=== PATIENT | female | born 1995 | race Caucasian/White ===

== ENCOUNTER 2016-03-27 11:24 | Inpatient (IN) | payer BC ==
[~2016-03-27 11:24] MED LIST: ACETAMINOPHEN 500 MG TAB PO ONE; BUPIVACAINE/EPI 0.25% 30 ML SDV ONE; CEFAZOLIN 2 GM/DEXTR 100 ML IV ONE; CITRATE DEXTROSE SOLN 500 ML BAG ONE; PREGABALIN 75 MG CAP PO ONE; SKIN ADHESIVE (DERMABOND) 1 EACH TP ONE; TRANEXAMIC ACID 1,000 MG in NS 100 ML IV ONE
[2016-03-27] MEDS ORDERED: fentaNYL 100 MCG/2 ML INJ ONE ×3 (11:43→19:27)
[2016-03-27] MEDS ORDERED: DEXAMETHASONE 4 MG/ML VIAL ONE (11:43)
[2016-03-27] MEDS ORDERED: HYDROmorphONE/DILAUDID 2 MG/ML SYR ONE (11:43)
[2016-03-27] MEDS ORDERED: ONDANSETRON 4 MG/2 ML VIAL ONE (11:43)
[2016-03-27] MEDS ORDERED: ROCURONIUM 50 MG/5 ML VIAL ONE (11:43)
[2016-03-27] MEDS ORDERED: LIDOCAINE 2% 100 MG/5 ML SYR IVP ONE (11:43)
[2016-03-27] MEDS ORDERED: SUGAMMADEX SODIUM 200 MG/2 ML VIAL IVP ONE (11:43)
[2016-03-27] MEDS ORDERED: ACETAMINOPHEN 500 MG TAB ONE (11:44)
[2016-03-27] MEDS ORDERED: PROPOFOL 200 MG/20 ML VIAL ONE ×2 (11:44→16:07)
[2016-03-27] MEDS ORDERED: PREGABALIN 75 MG CAP ONE (11:45)
[2016-03-27] MEDS ORDERED: SCOPOLAMINE HYDROBROMIDE 1.5 MG PATCH TD ONE (12:30)
[2016-03-27] MEDS ORDERED: LR 1,000 ML IV ONE (12:42)
[2016-03-27] MEDS ORDERED: LIDOCAINE 2% 5 ML SDV ONE ×2 (13:28)
[2016-03-27] MEDS ORDERED: MIDAZOLAM 2 MG/2 ML VIAL ONE (13:31)
[2016-03-27] MEDS ORDERED: PHENYLEPHRINE HCL 100 MCG/ML SYR ONE (14:01)
[2016-03-27] MEDS ORDERED: NARCOTIC DRIP BAG-TOTAL ALL TYPES EP PRN (14:44)
[2016-03-27] MEDS ORDERED: diphenhydrAMINE 25 MG CAP PO PRN (14:44)
[2016-03-27] MEDS ORDERED: ONDANSETRON 4 MG/2 ML VIAL IVP PRN ×2 (14:44→18:01)
[2016-03-27] MEDS ORDERED: NALOXONE HCL 0.4 MG/ML INJ IVP PRN (14:44)
[2016-03-27] MEDS ORDERED: CITRATE DEXTROSE SOLN 500 ML BAG ONE (16:23)
[2016-03-27] MEDS ORDERED: ACETAMINOPHEN 325 MG TAB PO PRN (18:01)
[2016-03-27] MEDS ORDERED: POLYETHYLENE GLYCOL 3350 17 GM PKT PO PRN (18:01)
[2016-03-27] MEDS ORDERED: LACTULOSE 20 GM/30 ML UDCUP PO PRN (18:01)
[2016-03-27] MEDS ORDERED: BISACODYL 10 MG SUPP PR PRN (18:01)
[2016-03-27] MEDS ORDERED: MAGNESIUM HYDROXIDE 30 ML UDCUP PO PRN (18:01)
--- NOTE | 2016-03-27 18:08 | SUROPNOTE ---
ANDRY Operative Report - Surgery Surgery was performed at [facility] 03/27/16 Diagnosis: Right 1. Hip Acetabular Dysplasia Operation: Right [place] Acetabular Osteotomy (ESTHER) Surgeon: Yao Jorge MD Aircraft Tool Maker: Quincy RANGEL Anesthetic: General + epidural Procedure: General anesthetic. Antibiotics given. Cell saver in use. Fluoroscopy. Phase 1: Position lateral, diagonal skin incision between ischial tuberosity and greater trochanter as for posterior hip approach. Blunt split of glut max fibers. Identification of fat pad overlying sciatic nerve. Exposure of sciatic nerve under fat pad, gently retracting it away-medially to ischial tuberosity. Exposure of subcotoloid fossa proximal to short rotators. Using osteotomes and under fluoroscopy, osteotomy of subcotoloid fossa to sciatic notch proximal to ischial spine. Closure of lateral cut. Patient is turned supine. Phase 2: Skin incision just distal to ASIS. Using diathermy the iliac spine was exposed and inguinal ligament + Sartorious were retracted medially, taking the LFCN with them, protecting it. Inner ilium was dissected from iliacus muscle bluntly , with a cob and swab. Dissection continued towards lateral superior ramus pubis. Using fluoroscopy an osteotomy of lateral superior ramus, just medial to tear drop, was performed with curved fish mouth osteotome. Phase 3: Osteotomy lines of the ilium were marked with diathermy as pre planned according to XR/CT and expected correction of acatabulum. 2 Shanz screws were drilled into central acetabular fragment, corresponding with planned correction angles, in order to mobilize central acetabular fragment after osteotomy is complete. Iliac osteotomy was performed with reciprocating saw and the main acetabular fragment was moved to realign weight bearing position. After confirmation of correction using fluoroscopy in AP and false profile planes, the fragment was fixed with 2 - 5.5mm full threaded screws Inguinal ligament and Sartorious were attached back to ASIS through drill holes. Incision was closed according to soft tissue layers. Skin was closed with subdermal Monocryl. Final fluoro shots were obtained to confirm position/correction. After surgery Elmira moved both lower limbs and had no NV motor compromise. Evaluation under anesthesia: IR at 90 degrees hip flexion prior to ESTHER was 10 degrees and after ESTHER was 0-5 degrees. Bleedin cc into cell-saver, 400 of blood products were returned to patient. Post op instructions: 1. Non weight bearing crutches for 2 weeks, WBAT after post op visit 2. Epidural analgesia for 24-48 hours 3. Continuous SCD 4. Aspirin 81 mg X1 day once Epidural is discontinued 5. Avoid hip flexion past 90 and hip External rotation. 6. PT according to my recommendations at follow up visit Kind regards, Dr. Yao Jorge .
--- NOTE | 2016-03-27 19:06 | DX ---
Fluoroscopy provided for periacetabular osteotomy 1552 hours Indication: Guidance for right periacetabular osteotomy Fluoroscopy time: 50.7 seconds. Dose: 13.58 mGy Technique: 7 intraoperative spot films Findings: Sequential imaging reveals a right periacetabular osteotomy and transfixation with cannulat ed screws in the acetabular roof. Impression: Fluoroscopy provided for intraoperative guidance.
[2016-03-27] MEDS: SENNOSIDES/DOCUSATE SODIUM TAB PO SCH (20:25)
[2016-03-28] MEDS: HYDROmorph 10MCG/ML&BUP 0.1% in 100ML NS EP SCH ×2 (02:26→19:19)
[2016-03-28 05:30] LABS: HEMATOCRIT 33.7 % (38.0-47.0); HEMOGLOBIN 11.5 g/dL (12.6-16.3); MEAN CELL HEMOGLOBIN 31.8 pg (27.9-34.1); MEAN CELL HEMOGLOBIN CONCENTR. 34.1 g/dL (32.4-36.7); MEAN CELL VOLUME 93.1 fL (81.5-99.8); RED BLOOD CELL COUNT 3.62 10^6/uL (4.18-5.33); RED CELL DISTRIBUTION WIDTH 11.8 % (11.5-15.2)
[2016-03-28 05:55] LABS: ANION GAP 4 mEq/L (8-16); CALCIUM 8.7 mg/dL (8.5-10.4); CARBON DIOXIDE 24 mEq/l (22-31); CHLORIDE 106 mEq/L (97-110); CREATININE 0.7 mg/dL (0.6-1.0); GLOMERULAR FILTRATION RATE > 60; GLUCOSE 99 mg/dL (70-100); POTASSIUM 4.4 mEq/L (3.5-5.2); SODIUM 134 mEq/L (134-144)
[2016-03-28] MEDS: LEVOTHYROXINE 25 MCG TAB PO SCH (06:09)
[2016-03-28] MEDS: DC NARCS MISC SCH (10:01)
[2016-03-28] MEDS: REGARDING ANTICOAG MISC SCH (10:01)
[2016-03-28] MEDS: SENNOSIDES/DOCUSATE SODIUM TAB PO SCH ×2 (11:08→19:57)
[2016-03-28] MEDS: OXYCODONE/APAP 5/325 TAB PO PRN ×3 (11:08→23:52)
--- NOTE | 2016-03-28 13:21 | SOAPPROG ---
SOAP Progress Note Assessment/Plan: Assessment:21 yo F POD 1 s/p ESTHER with epidural for post op pain. Pain moderately controlled with PCEA and supplemental Percocet. Numbness of LLE more concerning to pt. than pain at surgical site. Plan:Reassurance. Decrease epidural rate to 3 cc/hr with 3 cc every 15 min prn pain, patient controlled. Continue Percocet. If numbness continues to be disconcerting, will d/c bupivicaine in epidural solution and continue straight hydromorphone solution likely with increased rate. 03/28/16 13:17 Subjective: complains of numbness greater in LLE than R. Having pain 4/10 at rest, up to 8/ 10 when working with PT. Concerned about numbness in LLE more so than pain at surgical site Objective: Awake, alert. Appears to have mild discomfort. Epidural site clean dry intact. Motor and sensory decreased L>R. Vital Signs Temp Pulse Resp BP Pulse Ox 36.4 C 53 L 16 83/47 L 100 03/28/16 11:16 03/28/16 11:16 03/28/16 11:16 03/28/16 11:16 03/28/16 11:16 Laboratory Results 03/28/16 04:18 03/28/16 04:18 03/27/16 03/28/16 03/29/16 05:59 05:59 05:59 Intake Total 3095 Output Total 1900 1100 Balance 1195 -1100 - Time Spent With Patient Time Spent With Patient: 15 min ICD10 Worksheet Patient Problems: Problems Problem Status Diagnosed Hip dysplasia, congenital Acute - ICD10 Problem Qualifiers (1) Hip dysplasia, congenital
--- NOTE | 2016-03-28 21:57 | SOAPPROG ---
LESLIE Progress Note Assessment/Plan: Assessment: Plan: 03/28/16 21:54 Saw Ally infante, she is doing well, pain is managed well, with some mre numbness on contra lateral side which had mostly resolved. NV intact. She got up today. No headaches or weakness for now. BP runs a bit low/normal. She feels good with no complaints. Hb 11.5 Dr Jorge 03/28/16 21:56 Objective: Vital Signs Temp Pulse Resp BP Pulse Ox 37.0 C 66 16 90/49 L 99 03/28/16 19:25 03/28/16 19:25 03/28/16 19:25 03/28/16 19:25 03/28/16 19:25 Laboratory Results 03/28/16 04:18 03/28/16 04:18 03/27/16 03/28/16 03/29/16 05:59 05:59 05:59 Intake Total 3095 1000 Output Total 1900 1700 Balance 1195 -700 ICD10 Worksheet Patient Problems: Problems Problem Status Diagnosed Hip dysplasia, congenital Acute
[2016-03-29] MEDS: LEVOTHYROXINE 25 MCG TAB PO SCH (05:46)
[2016-03-29] MEDS: OXYCODONE/APAP 5/325 TAB PO PRN (05:46)
[2016-03-29] MEDS: DC NARCS MISC SCH (09:07)
[2016-03-29] MEDS: REGARDING ANTICOAG MISC SCH (09:07)
--- NOTE | 2016-03-29 10:09 | SOAPPROG ---
SOAP Progress Note Assessment/Plan: Assessment: 2nd day post op RIGHT Periacetabular Osteotomy Plan: Wean down and off PCEA per anesthesia I am switching the percocet with Oxycodone Up with PT/OT Pelvis Xray tomorrow Likely home Sunday03/29/16 09:58 Subjective: Elmira is doing well this morning. She is having more numbness on her non- surgical side and had to be weaned down for this reason. She was discouraged from putting weight on right side yesterday due to numbness. Objective: Vital Signs Temp Pulse Resp BP Pulse Ox 36.6 C 55 L 14 86/43 L 96 03/29/16 07:37 03/29/16 07:37 03/29/16 07:37 03/29/16 07:37 03/29/16 07:37 Laboratory Results 03/28/16 04:18 03/28/16 04:18 03/28/16 03/29/16 03/30/16 05:59 05:59 05:59 Intake Total 3095 2750 Output Total 1900 3500 Balance 1195 -750 Well appearing in NAD Right Hip: dressings clean dry intact no LFCN distribution numbness NVI distally Full ROM of foot and ankle - Pending Discharge Pending Discharge Within 48 Hours: Yes Pending Discharge Date: 03/31/16 Pending Discharge Time: 11:00 ICD10 Worksheet Patient Problems: Problems Problem Status Diagnosed Hip dysplasia, congenital Acute
[2016-03-29] MEDS: HYDROmorphONE/DILAUDID 1 MG/ML SYR IVP PRN (11:59)
[2016-03-29] MEDS: NAPROXEN SODIUM 220 MG TAB PO SCH ×2 (12:06→20:17)
[2016-03-29] MEDS: SENNOSIDES/DOCUSATE SODIUM TAB PO SCH ×2 (12:06→20:17)
[2016-03-29] MEDS: oxyCODONE IR 15 MG TAB PO PRN ×3 (13:06→22:39)
--- NOTE | 2016-03-29 15:42 | SOAPPROG ---
SOAP Progress Note Assessment/Plan: Assessment:21 yo F POD 2 s/p ESTHER with epidural for post op pain. Pain controlled with PCEA and supplemental Percocet. Numbness of LLE more concerning to pt. than pain at surgical site and this numbness has now resolved. Plan: Discontinue epidural infusion. Continue opioid analgesics per ortho. Remove epidural cath tomorrow if pt tolerates IV/PO analgesic trial. 03/29/16 15:37 Subjective: Pain controlled, L leg numbness improved and less disconcerting. Objective: Awake alert. Epidural site clean dry intact. Sensation and motor decreased in L>R but improved from yesterday. Vital Signs Temp Pulse Resp BP Pulse Ox 37 C 79 16 95/60 L 99 03/29/16 13:52 03/29/16 13:52 03/29/16 13:52 03/29/16 13:52 03/29/16 13:52 Laboratory Results 03/28/16 04:18 03/28/16 04:18 03/28/16 03/29/16 03/30/16 05:59 05:59 05:59 Intake Total 3095 2750 400 Output Total 1900 3500 1000 Balance 1195 -750 -600 - Time Spent With Patient Time Spent With Patient: 15 min ICD10 Worksheet Patient Problems: Problems Problem Status Diagnosed Hip dysplasia, congenital Acute - ICD10 Problem Qualifiers (1) Hip dysplasia, congenital
[2016-03-29] MEDS: ASPIRIN EC 81 MG TAB PO SCH (18:37)
[2016-03-30] MEDS: oxyCODONE IR 15 MG TAB PO PRN ×6 (00:31→20:31)
[2016-03-30] MEDS: LEVOTHYROXINE 25 MCG TAB PO SCH (04:56)
[2016-03-30] MEDS: ASPIRIN EC 81 MG TAB PO SCH (09:29)
[2016-03-30] MEDS: SENNOSIDES/DOCUSATE SODIUM TAB PO SCH ×2 (09:30→20:30)
[2016-03-30] MEDS: NAPROXEN SODIUM 220 MG TAB PO SCH ×2 (09:30→20:30)
[2016-03-30] MEDS: REGARDING ANTICOAG MISC SCH (09:34)
[2016-03-30] MEDS: DC NARCS MISC SCH (09:34)
[2016-03-30] MEDS: HYDROmorphONE/DILAUDID 1 MG/ML SYR IVP PRN (15:23)
--- NOTE | 2016-03-30 15:55 | DX ---
Pelvis - Single View Indication: Postop day 3 for right periacetabular osteotomy. Comparison: Fluoroscopic images dated March 27, 2016. Findings: The two cannulated screws transfixing the right acetabular osteotomy fragment remain well s eated. Bones are anatomically aligned. Impression: Well-seated right periacetabular osteotomy.
[2016-03-30] MEDS: DIAZEPAM 2 MG TAB PO PRN ×2 (16:46→23:15)
--- NOTE | 2016-03-30 21:51 | SOAPPROG ---
SOAP Progress Note Assessment/Plan: Assessment: Plan: 03/28/16 21:54 Saw Ally tonangelo, she is doing well, pain is managed well, with some mre numbness on contra lateral side which had mostly resolved. NV intact. She got up today. No headaches or weakness for now. BP runs a bit low/normal. She feels good with no complaints. Hb 11.5 Dr Jorge 03/28/16 21:56 03/30/16 21:49 Saw Ally infante, POD 3. epidural is out, folly still in. pain seem to be well managed with one tough episode today during XR. NV intact. progressing well. Dr Jorge Objective: Vital Signs Temp Pulse Resp BP Pulse Ox 36.9 C 75 14 94/56 L 99 03/30/16 20:00 03/30/16 20:00 03/30/16 20:00 03/30/16 20:00 03/30/16 20:00 Laboratory Results 03/28/16 04:18 03/28/16 04:18 03/29/16 03/30/16 03/31/16 05:59 05:59 05:59 Intake Total 2750 2400 1500 Output Total 3500 2600 1600 Balance -750 -200 -100 ICD10 Worksheet Patient Problems: Problems Problem Status Diagnosed Hip dysplasia, congenital Acute
--- NOTE | 2016-03-30 23:16 | SOAPPROG ---
SOAP Progress Note Assessment/Plan: Assessment:21 yo F POD 3 s/p ESTHER with epidural for post op pain infusion off x24 hrs. Pain controlled on iv po analgesics Plan: Continue opioid analgesics per ortho. Remove epidural cath. 03/30/16 23:13 Subjective: pain controlled off epidural infusion LE numbness resolved Objective: sensation and motor intact in LE. Epidural site clean dry intact. epidural cath intact on removal. Vital Signs Temp Pulse Resp BP Pulse Ox 36.9 C 75 14 94/56 L 99 03/30/16 20:00 03/30/16 20:00 03/30/16 20:00 03/30/16 20:00 03/30/16 20:00 Laboratory Results 03/28/16 04:18 03/28/16 04:18 03/29/16 03/30/16 03/31/16 05:59 05:59 05:59 Intake Total 2750 2400 1500 Output Total 3500 2600 1600 Balance -750 -200 -100 - Time Spent With Patient Time Spent With Patient: 5 min ICD10 Worksheet Patient Problems: Problems Problem Status Diagnosed Hip dysplasia, congenital Acute - ICD10 Problem Qualifiers (1) Hip dysplasia, congenital
[2016-03-31] MEDS: oxyCODONE IR 15 MG TAB PO PRN ×5 (00:35→16:50)
[2016-03-31] MEDS: LEVOTHYROXINE 25 MCG TAB PO SCH (05:58)
[2016-03-31] MEDS: ONDANSETRON DISINTEGRATING 4 MG TAB PO PRN ×2 (09:25→12:00)
[2016-03-31] MEDS: ASPIRIN EC 81 MG TAB PO SCH (09:26)
[2016-03-31] MEDS: NAPROXEN SODIUM 220 MG TAB PO SCH (09:26)
[2016-03-31] MEDS: SENNOSIDES/DOCUSATE SODIUM TAB PO SCH (09:26)
[2016-03-31] MEDS ORDERED: SCOPOLAMINE HYDROBROMIDE 1.5 MG PATCH TD ONE (11:30)
--- NOTE | 2016-03-31 12:19 | SOAPPROG ---
SOAP Progress Note Assessment/Plan: Assessment: 4th day post op RIGHT Periacetabular Osteotomy Plan: Scopolamine patch DC Home 03/29/16 09:58 03/31/16 12:16 Subjective: Elmira is feeling some nausea this am, the scopolamine patch was taken off. Her pain is well controlled with the oral analgesics but she had a rough experience with the pelvis XR yesterday. She is ready to go home. Objective: Vital Signs Temp Pulse Resp BP Pulse Ox 36.6 C 66 16 93/62 L 98 03/31/16 09:19 03/31/16 09:19 03/31/16 09:19 03/31/16 09:19 03/31/16 09:19 Laboratory Results 03/28/16 04:18 03/28/16 04:18 03/30/16 03/31/16 04/01/16 05:59 05:59 05:59 Intake Total 2400 2000 Output Total 2600 2900 Balance -200 -900 Well appearing in NAD Right Hip Dressings clean dry intact NVI distally Full ROM of foot and ankle - Pending Discharge Pending Discharge Within 24 Hours: Yes Pending Discharge Date: 04/01/16 Pending Discharge Time: 11:00 ICD10 Worksheet Patient Problems: Problems Problem Status Diagnosed Hip dysplasia, congenital Acute
[2016-03-31 13:03] VITALS: BP 97/62; PULSE 81; RESP 18; TEMP 98.5; O2SAT 94
[2016-03-31] MEDS: DIAZEPAM 2 MG TAB PO PRN (17:05)
--- NOTE | 2016-04-14 12:41 | GDS ---
[f rep st] DISCHARGE SUMMARY HOSPITAL COURSE: The patient underwent a right periacetabular osteotomy for right hip acetabular dy splasia on March 27, 2016. Intraoperatively, Prater and epidural catheters were placed. She recei kayla good postoperative team management, although she did notice having more numbness on her contrala teral side, and had been weaned down off the PCEA for this reason by her second postoperative day. She transitioned to oral analgesics well. Pelvis x-ray was obtained her third postoperative day whjessica ch showed good screw and bony fixation, and she was sent home in good condition on her fourth postop erative day. She did have some nausea on her third postoperative day after the scopolamine patch wa s removed and this was replaced prior to discharge. She will go home with SCDs to be worn 24 hours a day, 7 days a week for 2 weeks postoperatively, and thereafter only at night for another week. She will be given 81 mg of aspirin. Both of these for DVT prophylaxis. She was sent home with a script of oxycodone and will follow up with Dr. Ania flood 2 weeks' time. /[id number]/MODL
== END 2016-03-31 19:13 | disposition home or self-care (01) | DRG 517 ==
LOC: F3N 11:24
PROVIDERS: ADMIT Orthopaedic Surgery Sports Medicine; ATTEND Orthopaedic Surgery Sports Medicine
PROC: 0Q840ZZ Division of Right Acetabulum, Open Approach (ICD-10-PCS; principal; 2016-03-27 12:45)
DX: Q65.89 Other specified congenital deformities of hip (principal); E03.9 Hypothyroidism, unspecified
CPT/HCPCS: 97116-GP; 97161-GP; 97165-GO; 97530-GO; 97530-GP; 97535-GO; C1713; C1769; J0690; J1100; J1170; J2001; J2250; J2370; J2405; J2704; J3010; J7060

== ENCOUNTER 2017-01-29 05:49 | Day surgery (SDC) | payer BC ==
--- NOTE | 2017-01-25 21:12 | PDGENHP ---
History and Physical - Chief Complaint Right Hip Pain - History of Present Illness Diagnosis: 1. 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 Right Borderline Hip Dyplasia HISTORY OF PRESENT ILLNESS: Kenis a 21 y.o.~very ~active female~who I have had the pleasure to consult on today. I have enjoyed meeting her. She~lives in [facility] for [facility]. ~ [employer] to [facility]. ~She~is single; she~has no~ children. ~Kenenjoys Dancing. Elmira's right~hip pain started several months~ago. 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 She has had deep hip pain in the right groin since. She had no~previous complaints. Kendoes not have~a known history of hip dysplasia. Presentation today is of anterior right~hip pain. ~The hip does not~wake her~at night and does~click and catch on her. Sitting can be uncomfortable~for her. Kendoes not~report suffering from lower back pain episodes. Kenhas not~participated in physical therapy and has not~tried other conservative measures. She~has not~received sufficient symptomatic improvement. Kenhas~utilized medication for pain management, including NSAID. Kenhas used medication for 2 months. Kendenies issues with the left~hip. ~ Kenunderstands that she~has a hip and pelvis problem which should be researched and wishes to get a better understanding of her~hip status, followed by an establishment of a treatment strategy, hoping she~would be able to get back to her~well being active life. History: Past medical history: ~ Hypothyroidism Relevant familial history: DM Past surgical history: No. Surgery Anesthesia Year Outcome 1 Left Wrist TFCC Repair General 2012 Good Kendenies problematic issues with general anesthesia in the past. I have reviewed, verified and agree with the past medical, surgical, family and social history. Current Medications:~has a current medication list which includes the following prescription(s): calcium, multivitamin, and synthroid. ALLERGIES:~has No Known Allergies. Objective: Physical Examination: Kenis 5~feet 9~inches tall and weighs 148~Lbs. Elmira~is AAO x3; she~is well- nourished, in NAD. Skin is warm and dry. ~Breathing is non-labored. ~CV with RRR by pulse. Abdomen is soft, NTND. Currently, she~walks with a normal~gait. Trendelenburg sign is negative~and proprioception is normal, both~sides. She~presents with severe~signs of joint laxity. Beightons Score: 9 She~is fit looking. ~~ Lower spine examination is negative~for sciatic or femoral nerve irritation with negative~SLR &~femoral stretch tests. Range of motion of the spine is normal~for flexion, extension, and rotations, with no~associated pain. Strength, Sensation and pulses are normal - bilaterally Ankles and knees exams are normal~and no~mal-alignment is evident. She~has no leg length discrepancy. Thigh circumference is symmetric~with no evidence for muscle atrophy~on both~ sides. Hip ROM (degrees): FL ER At 90~hip FL IR At 90~hip FL AB AD EX IR Neutral hip ER Neutral hip R 115 75 10 45 10 15 40 50 L 120 60 15 50 5 15 45 45 Specific hip and pelvis tests: Quadrant ROBBY Roll Add. Longus R +++ +++ +++ ++ L Negative Negative Negative Negative Glut. Med ITB Pos. Imp R Negative 5/5 strength Negative 5/5 strength Negative L Negative 5/5 strength Negative 5/5 strength Negative Squeeze test measured normal Bony Symphysis pubis is pain free~to touch while concentric activity of the rectus abdominis, does not~produce pain at its insertion. Ilio Psos specific tests are negative for pain during cycling for both hips~and no snap HF has good strength with no pain both hips. Anterior~capsule tenderness on Right Greater trochanteric burse is pain free~on both hips. Piriformis tests: FAIR is negative, with no~local signs of neuritis related to sciatic nerve. SIJs examination is normal~with normal~ROBBY in relation and local tenderness. Hamstrings tests are negative~functional contraction and negative~tendinopathy both hips. On a daily basis, the following percentages reflect Elmira's overall total pain: Deep hip: 100% Imaging: Radiology studies which I have personally reviewed, analyzed and measured are below: XR: AP of the hip and pelvis: Performed in a good~technique Coccyx to pubic symphysis distance 2.4~cm. 0~caudal/cephal [place] Lines are interrupted. No~Pathological signs are seen in the Symphysis Pubis. No~Pathological signs are seen at the Ischial tuberosity. ~ Specific measurements show: NSA~ LCE Sourcil~Angle Sharp's angle Lat. Cam Lat. Pincer C.Over~sign Head~Coverage % ATDmm R N 25 6 38 - - - 81 N L N 27 6 40 - - - 82 N Pos. wall sign ISS NAD ~~Dysplasia Comments R Negative Negative 21~mm + L Negative Negative 21~mm + Sclerosis Sup. Lat. OA Cysts Joint Space-WBZ Joint Space-Medial R Negative Negative Negative 5.3~mm 3.9~mm L Negative Negative Negative 5.2~mm 4.1~mm X Table lateral: Anterior cam lesion is seen~on both hips. Alpha Angle: ~ Right 71~dergrees Left 66~degrees MRI shows: A large~labral tear, Labrum is normal to minimally hypertrophic, Cam lesion, Cartilage appears intact Impression and plan: Kenis a 21 y.o.~active female~suffering from symptomatic right~hip pain due to Right~Femoroacetabular impingement (DILEEP) Cam type and Right~Borderline Hip Dyplasia~~causing significant disability to her~and altering her~sport and life activities. Physical examination, imaging, and her~story correspond with the diagnosis mentioned above. I explained that hip dysplasia is a condition wherein the hip joint has excessive play~and instability due to a variety of factors, including the depth and adequacy of the socket, the orientation of the femur bone, and ligament laxity around the hip joint. Dysplasia ranges in severity from borderline to sung, with treatment options being specific to the specific nature of the problem. Left untreated, the instability in the hip joint can cause progressive tearing of the labrum and deterioration of the surface cartilage, ultimately resulting in progressive osteoarthritis of the hip. I explained that femoroacetabular impingement (DILEEP - Cam type) arises due to a bony or soft tissue conflict between the femur (ball) and acetabulum (socket) caused by an abnormality in the shape of the femoral head and neck. Over time, repetitive impingement can result in damage to the labrum and adjacent surface cartilage within the socket, ultimately giving rise to progressive osteoarthritis of the hip. I explained that although a labral tear can be a source of pain, it is rarely the root of the problem and typically occurs secondary to an underlying abnormality in the shape and mechanics of the hip joint. I reviewed conservative treatment options for Dysplasia and DILEEP including activity modification to avoid positions of impingement or instability, physical therapy, non-steroidal anti-inflammatory medications, and various injections (corticosteroid and PRP) aimed at reducing inflammation in the hip joint or/and preventing dynamic instability and impingement. PRP injections may promote healing and reduce symptoms in certain cases but it will not repair chronically damaged tissue. Although these measures may help to buy time~and reduce current level of symptoms, they are not a definitive solution to the problem given the underlying abnormality in the shape of the hip joint. Patients who have failed conservative management and continue to experience symptoms are candidates for definitive surgical treatment, which may consist of hip arthroscopy alone or in combination with more invasive bony realignment procedures of the hip socket and/or femur called periacetabular osteotomy (ESTHER) or derotational femoral osteotomy (DFO). Hip arthroscopy typically includes treating the labrum with either repair or reconstruction of the torn labrum; as well as addressing the underlying abnormalities by restoring the normal shape to the hip joint. If the cartilage is damaged a Microfracture surgical procedure may also be necessary to help stimulate the growth of fibrocartilage. If a patient requires a labral reconstruction or a Microfracture, the initial rehabilitation from the surgery may take longer, but the local company intermodal truck driver results are typically favorable. I reviewed the technical aspects of periacetabular osteotomy (ESTHER) including risks, benefits, and expected course of recovery. Elmira~understands that ESTHER is an inpatient procedure carried out through two medium sized incisions on the front and back of the hip joint. The hip socket is cut, realigned, and stabilized with 2 3 internal screws. Risks include infection, bleeding, injury to nearby nerves or vessels, stiffness, persistent pain, instability, failure of bony healing, implant related complications, and venous thromboembolic disease. Rarely, revision surgery may be required to address these problems. Risks, potential complications, side effects and recovery from surgical procedure were discussed in length. We explained how this surgery is an open procedure, and though patients tend to do well in the long-term, it involves significant pain in the first 2-4 weeks post-op and a rather lengthy rehab.~Overall recovery takes approximately 6 12~months depending on the extent of damage and degree of repair. Kenunderstands that she~will undergo hip arthroscopy 1 week prior to the ESTHER to address damage inside the hip joint. Kenunderstands that hip arthroscopy and ESTHER are two separate procedures that are best performed one week apart, with the arthroscopy commencing first to "tighten up" any pathology evident in the hip joint (labral repair, etc.) and the ESTHER open procedure occurring 7-10 days later to realign the acetabulum. I reviewed the technical aspects of hip arthroscopy including risks, benefits, and expected course of recovery. Kenunderstands that hip arthroscopy is a minimally invasive outpatient procedure carried out through small incisions on the outer aspect of the hip joint. During surgery, the labral tear will be identified and either repaired or reconstructed~using bone anchors and suture material. Additionally, any excessive bone will be removed with a high-speed tarsha to reshape the hip joint and restore normal anatomy. Risks include infection, bleeding, injury to nearby nerves or vessels, stiffness, persistent pain, instability, venous thromboembolic disease, and traction related complications including temporary foot numbness. Rarely, revision surgery may be required to address these problems. Overall recovery takes approximately 4~ 8~months depending on the extent of damage and degree of repair. In the event that the labral tissue quality is inadequate for successful repair and healing, Kenunderstands that a labral reconstruction will be performed. This procedure entails placing a cadaver tissue graft within the hip joint and stabilizing it with bone anchors to build a new labrum. The overall recovery time for labral reconstruction is similar to that of labral repair, although the surgical procedure takes longer to perform. Kenwill review the info presented. In order to obtain more detailed information regarding the alignment, orientation, and shape of the bony hip and pelvis I will order a CT scan to be performed. The results of the CT scan, including femoral torsion and acetabular version measured values and 3D images, will aid me in deciding on the best treatment strategy and surgical pre-planning. In order to evaluate the integrity of the surface cartilage within the hip joint , I will order a delayed gadolinium enhanced MRI of cartilage (dGEMRIC). This study will determine whether Kenis a good candidate for hip preservation surgery. Kenis going to contact us after completing her~imaging studies. After reviewing her CT we will make a recommendation if we feel her main issue is impingement and that a scope alone is likely to provide significant relief, or if her main issue is instability and she should schedule a ESTHER to follow the scope. Kenis happy with this plan. I have also supplied her~with handouts, outlining the expected surgical treatment and rehab involved. I wish~Kenall the best, ~~ Nils Rincon MD History Information - Allergies/Home Medication List Allergies/Adverse Reactions: No Known Allergies Allergy (Verified 03/20/16 15:33) Home Medications: Acetaminophen/ASA/Caffeine [Excedrin Tablet (*)] 1 each PO DAILY PRN 03/13/16 [ Last Taken 02/25/16] Ibuprofen [Motrin (*)] 200 mg PO DAILY PRN 03/13/16 [Last Taken 02/25/16] Prochlorperazine Maleate [Compazine 10mg (*)] 10 mg PO DAILY PRN 03/13/16 [Last Taken 02/25/16] diphenhydrAMINE [Benadryl 25 MG (*)] 50 mg PO DAILY PRN 03/13/16 [Last Taken ] I have personally reviewed and updated: medical history - Social History Smoking Status: Never smoked Review of Systems Review of Systems: Physical Exam Physical Exam:
[2017-01-29] MEDS ORDERED: ceFAZolin 2 GM/SWFI 2 GM/20 ML SYR IVP ONE (06:11)
[2017-01-29] MEDS ORDERED: PREGABALIN 150 MG CAP PO ONE (06:11)
[2017-01-29] MEDS ORDERED: ACETAMINOPHEN 500 MG TAB PO ONE (06:11)
[2017-01-29] MEDS ORDERED: LR 1,000 ML IV ONE (06:11)
[2017-01-29] MEDS ORDERED: LIDOCAINE 1% 2 ML INJ ID PRN (06:11)
[2017-01-29] MEDS ORDERED: LIDOCAINE 1% 300 MG/30 ML SDV ONE (06:50)
[2017-01-29] MEDS ORDERED: MIDAZOLAM 2 MG/2 ML VIAL IVP ONE (07:14)
[2017-01-29] MEDS ORDERED: SCOPOLAMINE HYDROBROMIDE 1 MG/3 DAYS PATCH TD SCH (07:15)
[2017-01-29] MEDS ORDERED: MIDAZOLAM 2 MG/2 ML VIAL ONE (07:15)
[2017-01-29] MEDS ORDERED: SCOPOLAMINE HYDROBROMIDE 1 MG/3 DAYS PATCH TD ONE (07:15)
--- NOTE | 2017-01-29 07:16 | PDANEPAE ---
ANE Past Medical History - Cardiovascular History Hx Hypertension: No Hx Arrhythmias: No Hx Chest Pain: No Hx Coronary Artery / Peripheral Vascular Disease: No Hx CHF / Valvular Disease: No Hx Palpitations: No - Pulmonary History Hx COPD: No Hx Asthma/Reactive Airway Disease: No Hx Recent Upper Respiratory Infection: No Hx Oxygen in Use at Home: No Hx Sleep Apnea: No Sleep Apnea Screening Result - Last Documented: Negative - Neurologic History Hx Cerebrovascular Accident: No Hx Seizures: No Hx Dementia: No Neurologic History Comment: migraines - Endocrine History Hx Diabetes: Yes Hypothyroid: Yes Hyperthyroid: No Obesity: no Endocrine History Comment: hypothyroid - Renal History Hx Renal Disorders: No - Liver History Hx Hepatic Disorders: No - Neurological & Psychiatric Hx Hx Neurological and Psychiatric Disorders: No - Cancer History Hx Cancer: No - Congenital Disorder History Hx Congenital Disorders: No - GI History GERD: no Hx Gastrointestinal Disorders: No Gastrointestinal History Comment: constipation - Other Health History Other Health History: Acne. 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 ANE Review of Systems Review of Systems: - Exercise capacity METS (RN): 6 METS ANE Patient History - Allergies Allergies/Adverse Reactions: No Known Allergies Allergy (Verified 03/20/16 15:33) - Home Medications Home Medications: Acetaminophen/ASA/Caffeine [Excedrin Tablet (*)] 1 each PO DAILY PRN 03/13/16 [ Last Taken 02/25/16] Ibuprofen [Motrin (*)] 200 mg PO DAILY PRN 03/13/16 [Last Taken 02/25/16] Prochlorperazine Maleate [Compazine 10mg (*)] 10 mg PO DAILY PRN 03/13/16 [Last Taken 02/25/16] diphenhydrAMINE [Benadryl 25 MG (*)] 50 mg PO DAILY PRN 03/13/16 [Last Taken ] Aldactone 01/26/17 [Last Taken Unknown] Mononessa 28 Tablet 01/26/17 [Last Taken Unknown] - NPO status NPO Since - Liquids (Date): 01/28/17 NPO Since - Liquids (Time): 23:59 NPO Since - Solids (Date): 01/28/17 NPO Since - Solids (Time): 22:00 - Anes Hx Anes Hx: post operative nausea - Smoking Hx Smoking Status: Never smoked - Family Anes Hx Family Anes Hx: neg - N/A Family Hx Anesthesia Complications: neg ANE Labs/Vital Signs - Vital Signs Blood Pressure: 118/74 Heart Rate: 67 Respiratory Rate: 16 O2 Sat (%): 99 Height: 175.26 cm Weight: 65.771 kg ANE Physical Exam - Airway Neck exam: FROM Mallampati Score: Class 1 Mouth exam: normal dental/mouth exam - Pulmonary Pulmonary: no respiratory distress, no rales or rhonchi, clear to auscultation - Cardiovascular Cardiovascular: regular rate and rhythym, no murmur, rub, or gallop - ASA Status ASA Status: I ANE Anesthesia Plan Anesthesia Plan: GA w LMA
[2017-01-29] MEDS ORDERED: fentaNYL 100 MCG/2 ML INJ ONE (07:22)
[2017-01-29] MEDS ORDERED: DEXAMETHASONE 4 MG/ML VIAL ONE (07:22)
[2017-01-29] MEDS ORDERED: PROPOFOL/EMULSION 500 MG/50 ML BOTTLE IV ONE (07:22)
[2017-01-29] MEDS ORDERED: KETOROLAC 30 MG/1 ML SDV ONE (07:23)
[2017-01-29] MEDS ORDERED: RANITIDINE 50 MG/2 ML VIAL ONE (07:23)
[2017-01-29] MEDS ORDERED: ONDANSETRON 4 MG/2 ML VIAL ONE (07:23)
[2017-01-29] MEDS ORDERED: LIDOCAINE 2% 5 ML SDV ONE (07:26)
[2017-01-29] MEDS ORDERED: HYDROCODONE/APAP 5/325 TAB PO PRN (07:54)
[2017-01-29] MEDS ORDERED: fentaNYL 100 MCG/2 ML INJ IVP PRN (07:54)
[2017-01-29] MEDS ORDERED: ONDANSETRON 4 MG/2 ML VIAL IVP PRN (07:54)
[2017-01-29] MEDS ORDERED: OXYCODONE/APAP 5/325 TAB PO PRN (07:54)
[2017-01-29] MEDS ORDERED: ACETAMINOPHEN 500 MG TAB PO PRN (07:54)
[2017-01-29] MEDS ORDERED: NALOXONE HCL 0.4 MG/ML INJ IVP PRN (07:54)
[2017-01-29] MEDS ORDERED: LR 500 ML IV PRN (07:54)
--- NOTE | 2017-01-29 08:16 | POSTANESTH ---
Post Anesthetic Evaluation Cardiovascular Status: Normal, Stable Respiratory Status: Normal, Stable Level of Consciousness/Mental Status: Can Participate in Eval Pain Control: Adequate, Prn Tx Ordered Nausea/Vomiting Control: Adequate, Prn Tx Ordered Complications Possibly Related to Anesthesia: None Noted
[2017-01-29 08:20] VITALS: TEMP 97.5
[2017-01-29 09:31] VITALS: BP 110/75; PULSE 60; RESP 14; O2SAT 96
[2017-02-01] MEDS ORDERED: PATCH REMOVAL 1 EA PATCH TD SCH (07:15)
== END 2017-01-29 10:16 | disposition home or self-care (01) ==
LOC: FSGY 05:49
PROVIDERS: ATTEND Orthopaedic Surgery Sports Medicine
PROC: 0QP204Z Removal of Internal Fixation Device from Right Pelvic Bone, Open Approach (ICD-10-PCS; principal; 2017-01-29 07:15)
DX: T84.84XA Pain due to internal orthopedic prosthetic devices, implants and grafts, initial encounter (principal); M25.551 Pain in right hip
CPT/HCPCS: J0690; J1100; J1885; J2250; J2405; J2704; J2780; J3010